=== PATIENT | male | born 1965 | race Caucasian/White ===

== ENCOUNTER 2018-09-25 16:15 | Emergency (ER) | payer SELFPAY ==
[2018-09-25 17:08] VITALS: BP 150/100; PULSE 99; TEMP 98.5; BMI 25.8
--- NOTE | 2018-09-25 18:06 | PDOC ---
History of Present Illness - General Chief Complaint: Redness To Affected Area Stated Complaint: DRY, CRACKED FEET Time Seen by Provider: 09/25/18 17:04 History Source: Patient Exam Limitations: No Limitations - History of Present Illness Initial Comments: 09/25/18 18:00 53 yo M with a hx of eczema (seasonal exacerbation) presents to the emergency department with worsening rash on the right foot with associative right foot pain and swelling. Per the patient, he has had scales and rashes on his feet for "years" but worsened on his right foot for the last 2-3 weeks with worsening pain. His rashes normally flare up due to wearing boots with non- moisture absorbing socks. Pain described as throbbing, 6/10, worsening with movement, and relief with ibuprofen. Per the patient, it is intensely itchy, but denies calf pain and LE swelling. He has used bacitracin, anti-fungal cream , and OTC hydrocortisone cream without relief. Denies recent trauma and hx of autoimmune disorder. Denies the following: fever, chills, nausea, vomiting, chest pain, SOB, ears/nose/throat pain, headache, visual changes, abdominal pain , dysuria, hematuria, diarrhea, and hematochezia. Denies loss of motor function in right foot, but endorses decrease sensation on the sole. Hasnt seen a primary medical doctor in "awhile" Pmhx: Refer to above Shx: Right knee surgery Meds: None Allergies: NKDA Social: Denies alcohol and substance abuse. Uses tobacco. Familial hx: Psoriasis in full sister Past History - Past Medical History Allergies/Adverse Reactions: Allergies Allergy/AdvReac Type Severity Reaction Status Date / Time No Known Allergies Allergy Verified 12/13/17 16:45 Home Medications: Ambulatory Orders Ibuprofen [Motrin -] 400 mg PO TID #21 tablet 12/13/17 Methocarbamol [Robaxin -] 500 mg PO TID #21 tablet 12/13/17 Ketoconazole 2% Cream [Nizoral 2% Cream -] 1 applic TP DAILY 28 Days #1 cream COPD: No - Suicide/Smoking/Psychosocial Hx Smoking History: Current every day smoker Have you smoked in the past 12 months: Yes Number of Cigarettes Smoked Daily: 15 Information on smoking cessation initiated: Yes 'Breaking Loose' booklet given: 12/13/17 Hx Alcohol Use: No Drug/Substance Use Hx: No Substance Use Type: None Review of Systems - Review of Systems Able to Perform ROS?: Yes Is the patient limited [place]anian proficient: No Constitutional: No: Chills, Diaphoresis, Fever HEENTM: No: Eye Pain, Recent change in vision, Ear Pain, Nose Pain, Throat Pain , Mouth Pain Respiratory: No: Cough, Shortness of Breath, Hemoptysis Cardiac (ROS): No: Chest Pain, Irregular Heart Rate, Lightheadedness, Palpitations, Syncope, Chest Tightness ABD/GI: No: Constipated, Diarrhea, Nausea, Poor Appetite, Poor Fluid Intake, Rectal Bleeding, Vomiting, Tarry Stools : No: Burning, Dysuria, Hematuria, Urgency Musculoskeletal: No: Back Pain, Joint Pain, Neck Pain Integumentary: Yes: Dryness, Erythema, Rash. No: Flushing, Lumps Neurological: No: Headache, Numbness, Tingling, Tremors, Ataxia, Dizziness Psychiatric: No: Stressors Endocrine: No: Unexplained Weight Gain Hematologic/Lymphatic: No: Anemia *Physical Exam - Vital Signs Last Vital Signs Temp Pulse Resp BP Pulse Ox 98.5 F 99 H 16 150/100 97 09/25/18 16:56 09/25/18 16:56 09/25/18 16:56 09/25/18 16:56 09/25/18 16:56 - Physical Exam General Appearance: Yes: Nourished, Appropriately Dressed. No: Apparent Distress, Alcohol on Breath, Intoxicated HEENT: positive: EOMI, NGUYEN, Normal ENT Inspection, Normal Voice, Symmetrical, Pharynx Normal, Hearing Grossly Normal. negative: Pale Conjunctivae, Scleral Icterus (R), Scleral Icterus (L), Muffled/Hoarse voice, Pharyngeal Erythema, Tonsillar Exudate, Tonsillar Erythema, Nasal Congestion, Sinus Tenderness, Excessive drooling Neck: positive: Trachea midline. negative: Tender, Lymphadenopathy (R), Lymphadenopathy (L), Tender lateral, Tender midline Respiratory/Chest: positive: Lungs Clear, Normal Breath Sounds. negative: Chest Tender, Respiratory Distress, Accessory Muscle Use, Crackles, Rales, Rhonchi, Stridor, Wheezing Cardiovascular: positive: Regular Rhythm, Regular Rate, S1, S2. negative: Systolic Murmur Gastrointestinal/Abdominal: positive: Normal Bowel Sounds, Flat, Soft. negative : Tender Lymphatic: negative: Adenopathy Musculoskeletal: positive: Normal Inspection. negative: CVA Tenderness, Vertebral Tenderness Extremity: positive: Normal Capillary Refill, Normal Range of Motion, Tender, Other (R foot exhibits sclay lesions with erythema surrounding it that is NOT hot to the touch. Retained sensation in the feet bilaterally. Patient can exhibit passive ROM on both feet bilaterally. distal pulses 2+ bilaterally. no fluctuance noted on the right foot. ). 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 intact, Fully Oriented, Alert, Normal Mood/ Affect, Normal Response, Motor Strength 5/5 Moderate Sedation - Procedure Monitoring Vital Signs: Procedure Monitoring Vital Signs Temperature 98.5 F 09/25/18 16:56 Pulse Rate 99 H 09/25/18 16:56 Respiratory Rate 16 09/25/18 16:56 Blood Pressure 150/100 09/25/18 16:56 O2 Sat by Pulse Oximetry (%) 97 09/25/18 16:56 ED Treatment Course - RADIOLOGY Radiology Studies Ordered: Category Date Time Status ANKLE & FOOT-RIGHT* [RAD] Stat Radiology 09/25/18 17:21 Ordered Medical Decision Making - Medical Decision Making 53 yo M with a hx of eczema (seasonal exacerbation) presents to the emergency department with worsening rash on the right foot with associative right foot pain and swelling. Initial vitals: Initial Vital Signs Temp Pulse Resp BP Pulse Ox 98.5 F 99 H 16 150/100 97 09/25/18 16:56 09/25/18 16:56 09/25/18 16:56 09/25/18 16:56 09/25/18 16:56 Work up: appears the foot does not have cellulitis on lack of warmth at site of concern, systemic signs (lack of fever). will get xray of the right ankle and foot to assess formation of gas and if there is an infection in the bone. xrays were negative for gas forming pockets, dislocations, and fractures. Patient will be discharged with ketoconazole with close follow up with PMD. Likely this is more auto-immune related but will treat for possible fungal infection given failure of OTC creams. The patient agreed to either follow up with our ux visual designer or the primary medical doctor within 1 week after discharge. I answered all of his questions to his satisfaction and relayed the results of the images to him. Dispo: Discharge *DC/Admit/Observation/Transfer Diagnosis at time of Disposition: Tinea pedis Qualifiers: Laterality: right Qualified Code(s): B35.3 - Tinea pedis - Discharge Dispostion Disposition: HOME Condition at time of disposition: Good Decision to Admit order: No - Prescriptions Prescriptions: Ketoconazole 2% Cream [Nizoral 2% Cream -] 1 applic TP DAILY 28 Days #1 cream - Referrals Referrals: Jon Reyna DPM [Staff Physician] - [facility] [place] [facility] [place] [Provider Group] - Patient Instructions Printed Discharge Instructions: DI for Athlete's Foot Additional Instructions: you were evaluated in the emergency department for your right foot pain and itchiness. The xray did not show fractures or dislocations. you were prescribed a cream to be used once daily for 4 weeks straight. please follow with the referrals of the two groups listed in the discharge papers. please follow up with the foot doctor within 1 week after discharge for follow up care. please follow up with the primary medical group within 1 week after discharge for follow up care and management after discharge. please return to the emergency department if you have worsening symptoms or new concerning symptoms such as fevers/chills with worsening foot pain, inability to use the foot (its dropping) , red streaks up the leg, and loss of total sensation. thank you. - Post Discharge Activity Forms/Work/School Notes: Back to Work
--- NOTE | 2018-09-25 19:07 | PDOC ---
Attending Attestation - Resident Resident Name: MariluzReagan - ED Attending Attestation I have performed the following: I have examined & evaluated the patient, The case was reviewed & discussed with the resident, I agree w/resident's findings & plan - HPI HPI: 09/25/18 19:04 53 yo M with a hx of eczema (seasonal exacerbation) presents to the emergency department with worsening rash on the right foot with associative right foot pain and swelling. Per the patient, he has had scales and rashes on his feet for "years" but worsened on his right foot for the last 2-3 weeks with worsening pain. wears poorly fitting work boots and socks. has not seen pmd or podiatry denies trauma or falls. no f/c, weakness or paresthesia. - Physicial Exam PE: 09/25/18 19:05 General: NAD, well appearing Vascular: 2+ DP pulses symmetric and equal. Focused MSK/Neuro Exam notable for soft compartments, Cap refill <2 sec. Proximal and distal strength 5/5- equal and symmetric. Plantar flexion and dorsiflexion 5/5. FROM. Sensation grossly intact to light touch. No calf tenderness. Lower Extremity: soft compartment. no calf tenderness. 5/5 plantar and dorsiflexion. SILT. no laxity at knee jt. 2+ DP pulses bilaterally. Skin: color normal color, warm and well perfused. very dried and cracked skin to bilateral dorsum of feet, right >left. nonbleeding. mild erythema to right foot, but no warmth. - Medical Decision Making 09/25/18 19:06 hpi as documented VS wnl, no fever no systemic sx. likely fungal infection vs dry skin/xerotosis, vs eczema, but atypical in feet. rx antifungal cream x 4 weeks podiatry and pcp followup, DC in stable condition, instructions on well fitting and dry socks/shoes, appropriate well aeration foot hygiene discussed this is chronic issue x years, with recent exacerbation due to poor fitting shoes and underlying skin condition/dry skin, no s/s acute infection so no abx indicated.
== END 2018-09-25 19:16 | disposition home or self-care (01) ==
LOC: FER 16:15
DX: B35.3 Tinea pedis (principal); F17.210 Nicotine dependence, cigarettes, uncomplicated
CPT/HCPCS: 73610-TC-RT-FY; 73630-TC-RT-FY; 99281-25